=== PATIENT | female | born 1955 | race Caucasian/White ===

== ENCOUNTER → 2017-04-26 | Day surgery (SDC) | payer OTHER ==
[~2017-04-26] VITALS: Ht 170.2 cm; Wt 86.5 kg
[~2017-04-26] MED LIST: ACETAMINOPHEN/HYDROcodone 325 MG/5 MG TAB ONE; ASPI81TA23 PO; BACITRACIN TOP OINT 15 GM TUBE ONE; BUPIVACAINE HCL PF 0.5% 30 ML VIAL ONE; CHLORHEXIDINE GLUCONATE 2 % 1 PACK (2 CLOTHS) TOPICAL PRN; DEXAMETHASONE SOD PHOS 4 MG/ML VIAL ONE; INSULIN HUMAN REGULAR 1,000 UNITS/10 ML VIAL SQ PRN; LACTATED RINGER'S 1000 ML IV PRN; LIDOCAINE HCL 2% 50 ML VIAL ONE; LIPI10TA PO; LISI20TA PO; METOPROLOL TARTRATE 25 MG TAB PO PRN; MIDAZOLAM HCL 2 MG/2 ML VIAL ONE; NEOMYCIN/POLYMYXIN 1 ML G.U. IRRIGANT ONE; NORC5TAB PO; ONDANSETRON HCL 4 MG/2 ML VIAL ONE; POVIDONE IODINE 5% (ANTISEPSIS KIT) 4 APPLICATIONS EACH NARE PRN; SODIUM CHLORID 0.9% 500 ML IV PRN
[2017-04-26] MEDS: ceFAZolin 1,000 MG/NS 100 ML IV SCH ×6 (08:01→09:25)
--- NOTE | 2017-04-26 09:26 | EKG ---
Date Performed: 04/26/2017 Time Performed: 08:34:50 PTAGE: 61 years EKG: Sinus rhythm NORMAL ECG NO PREVIOUS TRACING DOCTOR: Germán Hayden Interpretating Date/Time 04/26/2017 09:26:02
[2017-04-26 10:30] VITALS: BP 122/63; PULSE 68; RESP 16; TEMP 97.9; O2SAT 99
--- NOTE | 2017-04-26 10:31 | MP ---
cc: TRENTON MAO III, M.D. DATE OF SURGERY 04/26/2017 PREOPERATIVE DIAGNOSIS Left middle finger nailbed mass. PROCEDURE Left middle finger nailbed mass excisional biopsy. SURGEON Trenton Mao III, MD PROCEDURE The patient was brought to the operating room and placed supine on the operating room table. After the correct site and side of the surgery were verified by members of each team in the room multiple times including the patient and myself and after adequate preoperative markings were verified by everyone and after adequate preoperative time-out was performed to everyone's satisfaction, the left upper extremity was prepped and draped in the traditional sterile surgical fashion. 2 cc of local anesthetic was injected dorsally over the middle phalanx. Two fingers from small sterile glove were used as a finger tourniquet. The eponychial fold was gently retracted and the mass effect was found to be proximal to the most visible part of the operative field. At this point therefore a 1 cm incision within the paronychial fold was made, retracted out of the way. A small window was made at the base of the fingernail exposing the nailbed which was completely intact. There was a papillary projection coming from the junction between the nailbed and the nail matrix and was excised in its entirety and passed off the field as a specimen. It was 1-2 mm increased dimension but appeared to be encapsulated. There were no other anatomic abnormalities identified. There was no obvious source of this mass. Thorough irrigation with saline was performed. The skin edges were reapproximated using interrupted 5-0 chromic sutures. An antibiotic ointment-coated wick was then placed underneath the nail matrix and the hand and arm were thoroughly cleansed and dried. A bulky soft dressing was applied. The finger tourniquet was released and the finger became soft, pink, warm, had brisk capillary refill of less than 2 seconds. There was no bleeding. The patient tolerated the procedure well. MD CHEVY Stoner III/DEONNA /10:12 AM /10:25 AM
== END | disposition home or self-care (01) ==
LOC: PHSDC 07:05
PROVIDERS: ATTEND Orthopaedic Surgery Hand Surgery
DX: R22.32 Localized swelling, mass and lump, left upper limb (principal); I10 Essential (primary) hypertension
CPT/HCPCS: 01840; 26116; 88304; 93005; J0690; J1100; J2250; J2405; J3010; J7120; 88305